=== PATIENT | female | born 1995 | race Two or more races ===

== ENCOUNTER 2019-04-11 02:52 | Inpatient (IN) | payer BC, SELFPAY ==
[~2019-04-11] VITALS: Ht 167.6 cm; Wt 80.4 kg
[2019-04-11] VITALS (8 sets, daily range): BP systolic 124–145; BP diastolic 65–84
[2019-04-11 04:44] LABS: HEMATOCRIT 38.2 % (36.0-47.0); HEMOGLOBIN 13.5 g/dl (12.0-15.5); MEAN CORPUSCULAR HEMOGLOBIN 32.2 pg (27.0-33.0); MEAN CORPUSCULAR HGB CONC 35.3 g/dl (32.0-36.5); MEAN CORPUSCULAR VOLUME 91.2 fl (80.0-96.0); PLATELET COUNT, AUTOMATED 199 10^3/uL (150-450); RED BLOOD COUNT 4.19 10^6/uL (4.00-5.40); WHITE BLOOD COUNT 10.6 10^3/uL (4.0-10.0)
[2019-04-11] MEDS ORDERED: BICITRA 30ML SOLN UDC As Ordered ONE (04:49)
[2019-04-11] MEDS ORDERED: LACTATED RINGER'S 1000 ML IV STA (04:53)
[2019-04-11] MEDS ORDERED: LR 1,000 ML IV SCH ×2 (04:53→06:30)
[2019-04-11] MEDS ORDERED: ceFAZolin 2 GM/D5W 50 ML IV BAG (J0690 PER 500MG) As Ordered ONE (04:53)
[2019-04-11] MEDS ORDERED: BICITRA 30ML SOLN UDC PO ONE (05:00)
[2019-04-11] MEDS ORDERED: ONDANSETRON 4MG/2ML VIAL (J2405) As Ordered ONE (05:07)
[2019-04-11] MEDS ORDERED: KETOROLAC 60 MG/2 ML VIAL (J1885) As Ordered ONE (05:07)
[2019-04-11] MEDS ORDERED: MORPHINE PRES-FREE INJ 10 MG/10 ML VIAL (J2274) As Ordered ONE (05:07)
[2019-04-11] MEDS ORDERED: NALBUPHINE HCL 10 MG/ML AMP (J2300) IV PRN ×2 (05:08→06:30)
[2019-04-11] MEDS ORDERED: ONDANSETRON 4MG/2ML VIAL (J2405) IV PRN ×3 (05:08→06:30)
[2019-04-11] MEDS ORDERED: diphenhydrAMINE INJ 50MG/ML VIAL (J1200) IV PRN (05:08)
[2019-04-11] MEDS ORDERED: METOCLOPRAMIDE INJ 10MG/2ML VIAL (J2765) IV PRN (05:08)
[2019-04-11] MEDS ORDERED: NALOXONE INJ 0.4 MG/1 ML VIAL (J2310) IV PRN ×2 (05:08)
[2019-04-11] MEDS ORDERED: OXYTOCIN INJ 10 UNITS/ML VIAL (J2590) As Ordered ONE (05:10)
[2019-04-11 05:33] LABS: CORD GAS ABE V -3.2; CORD GAS HCO3 V 21.1 MEQ/L; CORD GAS O2 SAT V 67.5 %; CORD GAS PCO2 V 36.3 mmHg; CORD GAS PH V 7.382 UNITS; CORD GAS PO2 V 26.6 mmHg; CORD GAS TCO2 V 22.2 MEQ/L
[2019-04-11] MEDS ORDERED: MEPERIDINE 50 MG/ML 1ML VIAL (J2175) As Ordered ONE (05:36)
[2019-04-11] MEDS ORDERED: ePHEDrine SULFATE 25 MG/5 ML(5MG/ML) SYRINGE As Ordered ONE (05:38)
[2019-04-11] MEDS ORDERED: BUPIVACAINE/DEXTROSE 0.75% 2 ML AMP As Ordered ONE (05:42)
[2019-04-11] MEDS ORDERED: OXYTOCIN DRIP 30 UNITS in APPROPRIATE DILUENT 1 EA IV SCH (06:01)
[2019-04-11] MEDS ORDERED: PERCOCET 5MG/325MG TAB PO PRN ×2 (06:15)
[2019-04-11] MEDS ORDERED: ACETAMINOPHEN TAB 650MG DOSE (2X325MG) PO PRN (06:15)
[2019-04-11] MEDS ORDERED: RHOGAM 300 MCG (1500 IU) INJ (J2790) IM SCH (06:15)
[2019-04-11] MEDS ORDERED: MEASLES,MUMPS,RUBELLA VACCINE INJ (MMR-II) (90707) SC SCH (06:15)
[2019-04-11] MEDS ORDERED: ACETAMINOPHEN 500 MG TAB PO PRN (06:15)
[2019-04-11] MEDS ORDERED: MORPHINE 10 MG/ML 1ML VIAL (J2270) IV PRN (06:30)
[2019-04-11] MEDS ORDERED: fentaNYL 100 MCG/2 ML INJECTION (J3010) IV PRN (06:30)
[2019-04-11] MEDS ORDERED: OXYTOCIN 30 UNITS IN 0.9% NaCl 500ML IV BAG (J2590) As Ordered ONE (06:33)
[2019-04-11] MEDS: LR 1,000 ML IV SCH ×3 (06:42→22:01)
[2019-04-11] MEDS: PRENATAL VITAMINS CHEWABLE TABLET PO SCH (08:08)
[2019-04-11] MEDS: KETOROLAC 30 MG/ML VIAL (J1885) IV SCH ×3 (10:54→22:06)
[2019-04-11] MEDS: SIMETHICONE 80 MG CHEW TAB PO PRN (17:50)
--- NOTE | 2019-04-11 19:06 | HPE ---
DATE OF ADMISSION: 04/11/2019 HISTORY: A 23-year-old G1, P0 female at 33-4/7 weeks gestation by last menstrual period (LMP) consistent with first-trimester ultrasound, presents with gush of fluid at approximately 1 a.m. the morning of admission. She was camping at [facility] at the time that this occurred, and she is not from the area. She was sent to [facility], who confirmed rupture of membranes. She was then transferred to [facility] for further care. Contractions have increased since leaving [facility]. She has continued to leak fluid. COURSE: Patient's care has been in [place], [place]. She was diagnosed with a bicornuate uterus. She was diagnosed with gestational diabetes, which is diet controlled. She is otherwise healthy. MEDICAL HISTORY: Noncontributory. SURGICAL HISTORY: Noncontributory. ALLERGIES: PENICILLIN. SOCIAL HISTORY: The patient is . They live in [facility]. Her is a police sergeant. Denies cigarettes, alcohol, or drug use. FAMILY HISTORY: History of Figueroa syndrome in her mother's side. PHYSICAL EXAMINATION: 137/77, pulse 84, afebrile. No apparent distress. Head and neck exam normal. Lungs clear. Heart regular rate and rhythm. Abdomen nontender, gravid. heart tone category 1. Sterile vaginal exam: 8 cm, breech, -2 station. Contractions every 2-3 minutes. LABORATORY DATA: Blood type A positive, Rubella immune. GBS unknown. ASSESSMENT: A 23-year-old G1, P0 at 33-4/7 weeks gestation with premature rupture of membranes (PPROM) and labor. PLAN: Patient is admitted on 04/11/2019. Plan for delivery due to active labor.
[2019-04-12 02:13] VITALS: BP 121/58
[2019-04-12] MEDS: IBUPROFEN 800 MG TAB PO SCH ×3 (06:00→22:28)
[2019-04-12 06:08] VITALS: BP 131/81
[2019-04-12 08:05] LABS: HEMATOCRIT 33.1 % (36.0-47.0); MEAN CORPUSCULAR HEMOGLOBIN 31.7 pg (27.0-33.0); MEAN CORPUSCULAR HGB CONC 34.1 g/dl (32.0-36.5); MEAN CORPUSCULAR VOLUME 92.7 fl (80.0-96.0); PLATELET COUNT, AUTOMATED 179 10^3/uL (150-450); RED BLOOD COUNT 3.57 10^6/uL (4.00-5.40); WHITE BLOOD COUNT 11.8 10^3/uL (4.0-10.0)
[2019-04-12 09:20] LABS: HEMOGLOBIN 11.3 g/dl (12.0-15.5)
[2019-04-12 10:00] VITALS: BP 141/64
[2019-04-12] MEDS: PRENATAL VITAMINS CHEWABLE TABLET PO SCH (10:28)
[2019-04-12] MEDS: SIMETHICONE 80 MG CHEW TAB PO PRN ×2 (10:28→22:28)
[2019-04-12] MEDS: DOCUSATE SODIUM 100 MG CAP PO PRN ×2 (14:20→22:28)
[2019-04-12 14:42] VITALS: BP 144/73
--- NOTE | 2019-04-12 17:45 | RO ---
DATE OF PROCEDURE: 04/11/2019 PREPROCEDURE DIAGNOSIS: 33-4/7 weeks gestation, labor, ruptured membranes, breech. POSTPROCEDURE DIAGNOSIS: 33-4/7 weeks gestation, labor, ruptured membranes, breech. PROCEDURE: Primary low transverse section. SURGEON: Mikey Fortune MD SYSTEMS REQUIREMENTS PLANNER: ANESTHESIA: Spinal. ESTIMATED BLOOD LOSS: 800 mL. URINE OUTPUT: 500 mL. FINDINGS: Viable female in the luci breech position. Weight unknown at the time of dictation. Evidence of bicornuate uterus. Normal ovaries and fallopian tubes. DESCRIPTION OF PROCEDURE: The patient was taken to the operating room where spinal anesthesia was induced. She was prepped and draped in a sterile fashion in the supine position. Due to the emergent nature of the procedure, a Pyle catheter was not placed. A Pfannenstiel skin incision was made with a scalpel, carried through the fascia, the fascia was nicked and extended. The fascia was dissected off the rectus muscles. The rectus muscles were divided. The peritoneal cavity was entered. Bladder flap was created. A curvilinear incision was made in the lower uterine segment. The presenting part was the buttocks, which were deep in the pelvis. Insect Control Inspector placed a hand vaginally to push up on the buttocks to allow the mounting machine operator to deliver from breech position. Delivery was subsequently accomplished. The cord was doubly clamped and cut. The infant was handed off to the awaiting sulfate drier machine operator. The placenta was expressed. The uterus was exteriorized and cleared of clots and debris. The uterine incision was closed with #0 Vicryl in a running locked fashion. A second imbricating layer of #0 Vicryl was placed. The uterus was placed back in the abdominal cavity. The peritoneum was closed with #2-0 Vicryl in a running fashion. The fascia was closed with #0 Vicryl in a running fashion. The deep layer was irrigated and closed with #2-0 chromic. The skin was closed with #4-0 Monocryl subcuticular sutures. Sponge, instrument, and needle counts were correct.
[2019-04-12 17:59] VITALS: BP 127/57
[2019-04-12 22:23] VITALS: BP 111/57
[2019-04-13 02:09] VITALS: BP 124/75
[2019-04-13 06:12] VITALS: BP 131/70
[2019-04-13] MEDS: IBUPROFEN 800 MG TAB PO SCH ×3 (06:15→23:14)
[2019-04-13] MEDS: PRENATAL VITAMINS CHEWABLE TABLET PO SCH (08:15)
[2019-04-13 18:51] VITALS: BP 121/65
[2019-04-13] MEDS: DOCUSATE SODIUM 100 MG CAP PO PRN (23:14)
[2019-04-14 06:00] VITALS: BP 122/76
[2019-04-14] MEDS: IBUPROFEN 800 MG TAB PO SCH (06:51)
--- NOTE | 2019-04-14 07:01 | DS.PDOC ---
Discharge Summary General Date of Admission Apr 11, 2019 at 04:16 Date of Discharge Apr 14, 2019 Discharge Summary PROCEDURES PERFORMED DURING STAY: section ADMITTING DIAGNOSES: 1. PPROM @ 33w4d, active labor 2. Breech presentation DISCHARGE DIAGNOSES: 1. Primary section, delivery for PPROM and breech. COMPLICATIONS/CHIEF COMPLAINT: LABOR. HISTORY OF PRESENT ILLNESS: 23yo G1 now P1 admitted 04/11/19. Pt of [facility], she was vacationing in the area when her membranes ruptured prematurely at 33w4d. Upon evaluation she was found to be in active labor with a breech presentation. HOSPITAL COURSE: Primary with appropriate recovery. She is pumping, tolerating regular diet. Adequate pain management with oral ibuprofen only. Voiding and passing flatus. DISCHARGE MEDICATIONS: Please see below. ALLERGIES: Please see below. PHYSICAL EXAMINATION ON DISCHARGE: VITAL SIGNS: Please see below. GENERAL: No distress, healthy HEENT: WNL NECK: Supple CARDIOVASCULAR EXAMINATION: HRR, normotensive RESPIRATORY EXAMINATION: Clear and unlabored ABDOMINAL EXAMINATION: Fundus firm, dressing intact with old drainage EXTREMITIES: Equal strength and motion SKIN: Intact NEUROLOGICAL EXAMINATION: Intact PSYCHIATRIC EXAMINATION: Appropriate LABORATORY DATA: Please see below. PROGNOSIS: Good ACTIVITY: As tolerated DIET: Regular DISCHARGE PLAN: Home DISPOSITION: Home. DISCHARGE INSTRUCTIONS: 1. Home/boarder status 2. F/u 2 wks with [facility] then 6 wks with [facility] 3. Routine care and precautions DISCHARGE CONDITION: Stable Vital Signs/I&Os Vital Signs Date Time Temp Pulse Resp B/P (MAP) Pulse Ox O2 Delivery O2 Flow Rate FiO2 04/14/19 06:00 98.9 80 16 122/76 (91) 98 Allergies Coded Allergies: Penicillins (Verified Allergy, Unknown, 04/11/19) Kristen Posadas CNM Apr 14, 2019 07:01
[2019-04-14] MEDS ORDERED: IBUP80TA PO (07:05)
[2019-04-14] MEDS: PRENATAL VITAMINS CHEWABLE TABLET PO SCH (12:23)
== END 2019-04-14 12:25 | disposition home or self-care (01) | DRG 540 ==
LOC: M LDO 02:52 → M LDI 04:16 → M OBS 08:09
PROVIDERS: ADMIT Specialist; ATTEND Specialist
PROC: 10D00Z1 Extraction of Products of Conception, Low, Open Approach (ICD-10-PCS; principal; 2019-04-11 05:14)
DX: O42.013 Preterm premature rupture of membranes, onset of labor within 24 hours of rupture, third trimester (principal); O24.420 Gestational diabetes mellitus in childbirth, diet controlled; O32.1XX0 Maternal care for breech presentation, not applicable or unspecified; Z3A.33 33 weeks gestation of pregnancy; O34.03 Maternal care for unspecified congenital malformation of uterus, third trimester; Q51.3 Bicornate uterus; Z37.0 Single live birth